=== PATIENT | female | born 1970 | race Caucasian/White ===

== ENCOUNTER → 2019-03-01 | Outpatient (CLI) | payer OTHER, SELFPAY ==
[2019-03-01 12:50] LABS: Erythrocyte Sedimentation Rate 2 mm/hr (0-20)
[2019-03-01 12:52] LABS: Absolute Lymphocyte Count 1.53 X10^3/ul (0.83-4.51); Absolute Neutrophil Count 4.1 X10^3/uL (2.0-7.7); Basophil# 0.03 X10^3/uL; Basophil% 0.5 % (0-1); Eosinophil# 0.07 X10^3/uL; Eosinophils% 1.1 % (0-5); Hematocrit 43.4 % (37-47); Hemoglobin 14.6 g/dl (12.0-15.0); Lymphocyte # 1.53 X10^3/ul (4.0); Lymphocyte % 24.7 % (19-41); Mean Corp Hgb Conc 33.6 g/gl (32-36); Mean Corpuscular Hgb 29.7 pg (27.0-32.0); Mean Corpuscular Volume 88.4 fL (81-99); Mean Platelet Vol. 11.7 fl (6.2-12.0); Monocyte# 0.48 X10^3/uL; Monocyte% 7.7 % (0-10); Neutrophil # 4.08 X10^3/uL (2.7-7.7); Neutrophil % 65.8 % (47-70); POSITIVE COUNT NO; POSITIVE DIFFERENTIAL NO; POSITIVE MORPHOLOGY NO; Platelet Count 255 K/mm3 (150-450); RBC Distribution Width CV 12.7 % (11.6-14.6); RBC Distribution Width SD 40.6 fl (35.1-43.9); Red Blood Count 4.91 M/mm3 (4.2-5.4); White Blood Count 6.2 K/mm3 (4.4-11.0)
[2019-03-01 13:13] LABS: AST(SGOT) 15 U/L (15-37); Alanine Aminotransfer ALT/SGPT 25 U/L (13-56); Alkaline Phosphatase 53 U/L (45-117); Anion Gap 6 (5-15); BUN 14 mg/dL (7-18); BUN/Creat Ratio 14.2 RATIO (10-20); Calcium,Total 8.9 mg/dL (8.5-10.1); Chloride 106 mmol/L (98-107); Creatinine, Serum 0.98 mg/dL (0.55-1.02); EST Glomerular Filtration Rate 65 mL/min (>60); Est Glom Filt Rate - Afr Amer 78 mL/min (>60); Ferritin 25 ng/mL (8-252); Globulin 3.9 g/dL (2.2-4.2); Glucose 79 mg/dL (74-106); Iron 75 ug/dL (50-170); Iron Binding Capacity,Total 302 ug/dL (250-450); PERCENT IRON SATURATION 24.8 % (15.0-55.0); Potassium 4.4 mmol/L (3.5-5.1); Protein, Total 7.9 g/dL (6.4-8.2); Sodium Level 140 mmol/L (136-145); Thyroid Stim Hormone (TSH) 2.21 uIU/mL (0.358-3.74)
== END | disposition home or self-care (01) ==
LOC: MFPLAB 10:24
PROVIDERS: Family Provider Family Medicine; PCP Family Medicine; Referring Provider Family Medicine; Visit Provider Family Medicine
DX: K92.1 Melena (principal); N92.0 Excessive and frequent menstruation with regular cycle; F42.9 Obsessive-compulsive disorder, unspecified
CPT/HCPCS: 36415; 80053; 82728; 83540; 83550; 84443; 85025; 85652

== ENCOUNTER 2019-04-02 06:29 | Day surgery (SDC) | payer OTHER, SELFPAY ==
[2019-03-13 08:59] VITALS: BMI 19.0
--- NOTE | 2019-03-13 11:28 | HP_ITS ---
Intake Vital Signs 03/13/19 Height 5 ft 8 in 03/13/19 Weight: 125 lb 03/13/19 Body Mass Index (BMI) 19.0 03/13/19 Blood Pressure 100/58 L 03/13/19 Blood Pressure Location Rt brachial 03/13/19 Blood Pressure Position Sitting 03/13/19 Respiratory Rate 14 03/13/19 Pulse Rate 54 L 03/13/19 Pulse Source Monitor 03/13/19 Temperature 97.9 F 03/13/19 Temperature Source Oral 03/13/19 Pulse Ox 100 03/13/19 Oxygen Delivery Method room air Intake Visit Reasons: [employer] Specialist Required: No Is patient in pain?: No (abdominal pain comes and goes) Allergies cyclobenzaprine [From Flexeril] Allergy (Unknown, Verified 03/13/19 08:39) Unknown pollen extracts Allergy (Unknown, Verified 03/13/19 08:39) Unknown Medications acetaminophen 325 mg tablet 650 mg PO Q6H PRN tab 03/13/19 [History Confirmed 03/13/19] cetirizine 10 mg tablet 10 mg PO DAILY 03/13/19 [History Confirmed 03/13/19] diphenhydramine 25 mg tablet 25 mg PO QHS PRN 03/13/19 [History Confirmed 03/13/19] famotidine 40 mg tablet 40 mg PO DAILY 03/13/19 [History Confirmed 03/13/19] paroxetine ER 37.5 mg tablet,extended release 24 hr 37.5 mg PO DAILY 03/13/19 [History Confirmed 03/13/19] PFSH Medical History Fatigue (Acute) Nausea (Acute) Abdominal pain (Acute) Asthma (Acute) Anxiety (Acute) Depression (Acute) Arthritis (Acute) Bloody stool (Acute) Migraine (Acute) Allergic rhinitis (Acute) IBS (irritable bowel syndrome) (Acute) Hematochezia (Acute) Dyspepsia (Acute) OCD (obsessive compulsive disorder) (Acute) Surgical History No significant past surgical history (Acute) Family History Father Arthritis Heart disease Brother Heart disease Social History Smoking Status: Never smoker second hand exposure: No alcohol intake: never substance use type: does not use caffeine: Yes frequency: does not exercise seatbelt use: always HPI HPI HPI: GILBERT LOWE, is a 48 F who presents to the office today for HPI HPI Surgical H&P: Yes HPI: GILBERT LOWE, is a 48 F who presents to the office today for clots per rectum, abdominal pain. Patient states about a month ago she had 3 days of blood clots and which were maroon per her rectum. Patient states she had finished her menses a day previous to the blood clots starting. Patient states prior to that she did have 4 to 5 days of constipation then had a large soft stool as well as quite a bit of gas next came the blood clots. Patient states that she also had an episode like this but shorter about 6 to 8 months ago she states she did have clots but only lasted about a half a day. Patient states she does eat a lot of fruits and vegetables drinks about 37 ounces of water daily states she normally does have bowel movements daily or every other day. Since the episode of the clots 1 month ago patient denies any blood in her stool since then. Patient does not believe she has any hemorrhoids. Patient denies any family history of colon cancer. Her paternal great-grandmother did have pancreatic cancer. Patient has never had an EGD or colonoscopy previously. Patient states she does have abdominal pain which comes and goes usually suprapubic or right lower quadrant per patient. She states her pains are usually a 2 out of 10. And she will get it with palpation without palpation she may not have any pain. ROS General General: Yes fatigue; no weight change Cardio Cardiovascular: No murmur, pacemaker, heart disease, atrial fibrillation, high blood pressure, heart attack, heart stent, palpitations, shortness of breat with exertion or chest pain Psych Psychiatric: Yes depression and anxiety Gastro Gastrointestinal: Yes abdominal pain, Yes nausea or vomiting, No diarrhea, No constipation, Yes blood in stool, No acid reflux, No hemorrhoids, No ulcers, No gallbladder problem, No black,tarry stools Exam Const General: cooperative, comfortable, no acute distress Resp Effort & Inspection: normal respiratory effort Cardio Rate: regular rate Heart Sounds: no murmurs GI Palpation: soft, no guarding, tender (Mainly in the right and left lower quadrants, periumbilical,) Other: Abdominal pain is rated 2/10 by patient with palpation, no peritoneal signs Assessment & Plan Problems 1. Blood per rectum K62.5 2. LLQ discomfort R10.32 3. RLQ discomfort R10.31 Plan I have discussed the above with the patient. I have offered the patient colonoscopy for evaluation. I have explained the risks/benefits of the procedure and described the procedure. I have discussed the risks with the patient, including but not limited to: infection, bleeding, perforation of the GI tract requiring emergency surgery, inability to complete the procedure, injury to any internal organs, complications of anesthesia, etc. - the patient understands and agrees to proceed. I have answered all the patient's questions to the patient's satisfaction and the patient has no further questions. The patient has been given instructions for the colon cleansing preparation. 1 day of clears, MiraLAX Dulcolax split prep Michelle Reveles M.D. Pager: [phone] [facility] [address] [place] [address], [facility], [address] [place] [address] Office: [phone] Orders Orders: Colonoscopy Today Medications New: paroxetine ER 37.5 mg PO DAILY Plan Detail Follow Up We will schedule colonoscopy Coding Level of Care Code Off vis,new,level 3 Diagnoses Blood per rectum K62.5 LLQ discomfort R10.32 RLQ discomfort R10.31 03/13/19 1128 <Electronically signed by Michelle Zapata am, MD> Date _ Michelle Reveles MD I have re-examined the patient. There are no clinical changes since date of exam.
[2019-04-02] VITALS (7 sets, daily range): BP systolic 92–105; BP diastolic 50–75; PULSE 61–72; RESP 14–16; TEMP 36.3–36.9; O2SAT 95–100; BMI 18.8
[2019-04-02 07:01] LABS: Internal QC Validated? YES +Cl - CLEAR BKGD; Pregnancy, Urine Negative Negative
--- NOTE | 2019-04-04 10:45 | OP.ENDO_ITS ---
04/04/2019 Khari Gallardo [address] [place] [address] Re : Colonoscopy procedure for Mary Frankel Dear Dr. Gallardo This procedure was performed on Tuesday, April 02, 2019. My impressions and recommendations are as follows: Impressions : - The entire examined colon is normal on direct and retroflexion views. - No specimens collected. Recommendations : - Discharge patient to home. - Resume previous diet. - Continue present medications. - Repeat colonoscopy in 10 years for screening purposes. My findings are described in the full procedure note, which is enclosed. If I can be of further assistance, please feel free to contact me at Doctor phone number(s): , Work: . Sincerely, MD Michelle Rashid MD 04/02/2019 8:32:02 AM This report has been signed electronically.
== END 2019-04-02 09:24 | disposition home or self-care (01) ==
LOC: EN 06:31 → AC 06:32
PROVIDERS: Anesthesiology; Family Provider Family Medicine; PCP Family Medicine; Referring Provider Family Medicine; Visit Provider Surgery
PROC: 0DJD8ZZ Inspection of Lower Intestinal Tract, Via Natural or Artificial Opening Endoscopic (ICD-10-PCS; CPT 45378; principal; 2019-04-02 07:55)
DX: K62.5 Hemorrhage of anus and rectum (principal); K21.9 Gastro-esophageal reflux disease without esophagitis; J45.909 Unspecified asthma, uncomplicated; F41.9 Anxiety disorder, unspecified; F32.9 Major depressive disorder, single episode, unspecified; F42.8 Other obsessive-compulsive disorder; M19.90 Unspecified osteoarthritis, unspecified site; Z80.0 Family history of malignant neoplasm of digestive organs; Z79.899 Other long term (current) drug therapy
CPT/HCPCS: 45378; 81025; J7120; J2405

== ENCOUNTER → 2023-02-07 | Outpatient (CLI) | payer SELFPAY ==
--- NOTE | 2023-02-07 09:35 | RAD_ITS ---
STUDY: X-RAY CHEST REASON FOR EXAM: Female, 52 years old. THORACIC BACK PAIN TECHNIQUE: PA and lateral views of the chest. COMPARISON: None. FINDINGS: Hyperinflation. The lungs are clear. There is no demonstrated pleural abnormality. Normal size heart. Normal mediastinum and emy. Normal visualized pulmonary arteries. Normal visualized aortic arch and descending thoracic aorta. Normal visualized thoracic spine. Normal visualized ribs, clavicles, and shoulders. There is no demonstrated abnormality of the visualized soft tissue structures of the upper abdomen. RAD/Chest PA and Lateral IMPRESSION: Hyperinflation. The lungs are clear. Electronically Signed: Gustavo Joshua MD at 15:35 EDT ,
[2023-02-07 12:06] LABS: Absolute Lymphocyte Count 1.88 X10^3/uL (0.83-4.51); Absolute Neutrophil Count 4.3 X10^3/uL (2.0-7.7); Basophil# 0.06 X10^3/uL; Basophil% 0.9 % (0-1); Eosinophils% 1.5 % (0-5); Hematocrit 43.8 % (37-47); Hemoglobin 14.7 g/dL (12.0-15.0); Lymphocyte # 1.88 X10^3/ul (0.83-4.51); Lymphocyte % 27.5 % (19-41); Mean Corp Hgb Conc 33.6 g/dL (32-36); Mean Corpuscular Hgb 30.4 pg (27.0-32.0); Mean Corpuscular Volume 90.7 fL (81-99); Monocyte% 7.3 % (0-10); NRBC Flagged by Analyzer 0 % (0-5); Neutrophil # 4.28 X10^3/uL (2.7-7.7); Neutrophil % 62.7 % (47-70); Platelet Count 353 K/mm3 (150-450); RBC Distribution Width CV 12.4 % (11.6-14.6); Red Blood Count 4.83 M/mm3 (4.2-5.4); White Blood Count 6.8 K/mm3 (4.4-11.0)
[2023-02-07 12:24] LABS: Progesterone Level 0.38 ng/mL (See Comment); Vitamin B12 318 pg/mL (211-911)
[2023-02-07 12:46] LABS: ALB/GLOB Ratio 0.9 RATIO (0.9-2.4); AST(SGOT) 16 U/L (15-37); Alanine Aminotransfer ALT/SGPT 27 U/L (13-56); Albumin, Serum 3.8 g/dL (3.2-5.0); Alkaline Phosphatase 76 U/L (45-117); Anion Gap 8 (5-15); BUN 16 mg/dL (7-18); BUN/Creat Ratio 14.8 RATIO (10-20); Calcium,Total 8.8 mg/dL (8.5-10.1); Chloride 107 mmol/L (98-107); Creatinine, Serum 1.08 mg/dL (0.55-1.02); EST Glomerular Filtration Rate 57 mL/min (>60); Est Glom Filt Rate - Afr Amer 69 mL/min (>60); Follicle Stimulating Hormone 10.1 mIU/mL; Globulin 4.2 g/dL (2.2-4.2); Glucose 84 mg/dL (74-106); Sodium Level 138 mmol/L (136-145); Thyroid Stim Hormone (TSH) 2.27 uIU/mL (0.358-3.74)
[2023-02-11 09:09] LABS: Estrogen, Total, Serum 232 pg/mL (.)
== END | disposition home or self-care (01) ==
PROVIDERS: PCP Family Medicine; Referring Provider Family Medicine; Visit Provider Family Medicine
DX: R20.2 Paresthesia of skin (principal); M54.9 Dorsalgia, unspecified; Z78.0 Asymptomatic menopausal state
CPT/HCPCS: 36415; 71046; 80053; 82607; 82672; 82746; 83001; 83002; 84144; 84443; 85025

== ENCOUNTER → 2025-03-25 | Outpatient (CLI) | payer SELFPAY ==
[2025-03-25 10:53] LABS: Absolute Lymphocyte Count 1.63 X10^3/uL (0.83-4.51); Absolute Neutrophil Count 4.4 X10^3/uL (2.0-7.7); Basophil# 0.04 X10^3/uL; Basophil% 0.6 % (0-1); Eosinophil# 0.09 X10^3/uL; Eosinophils% 1.4 % (0-5); Hematocrit 42.7 % (37-47); Hemoglobin 14.4 g/dL (12.0-15.0); Lymphocyte # 1.63 X10^3/ul (0.83-4.51); Lymphocyte % 24.7 % (19-41); Mean Corp Hgb Conc 33.7 g/dL (32-36); Mean Corpuscular Hgb 30.4 pg (27.0-32.0); Mean Corpuscular Volume 90.1 fL (81-99); Mean Platelet Vol. 10.9 fl (6.2-12.0); Monocyte# 0.45 X10^3/uL; Monocyte% 6.8 % (0-10); NRBC Flagged by Analyzer 0 % (0-5); Neutrophil # 4.38 X10^3/uL (2.7-7.7); Neutrophil % 66.3 % (47-70); PTHIN 48 pg/mL (11-61); Platelet Count 320 K/mm3 (150-450); RBC Distribution Width CV 12.5 % (11.6-14.6); Red Blood Count 4.74 M/mm3 (4.2-5.4); White Blood Count 6.6 K/mm3 (4.4-11.0)
[2025-03-25 11:00] LABS: Erythrocyte Sedimentation Rate 6 mm/hr (0-30)
[2025-03-25 11:16] LABS: ALB/GLOB Ratio 1.2 RATIO (0.9-2.4); AST(SGOT) 23 U/L (<=31); Alanine Aminotransfer ALT/SGPT 31 U/L (<=34); Albumin, Serum 4.3 g/dL (3.5-5.0); Alkaline Phosphatase 75 U/L (35-104); Anion Gap 10 (5-15); BUN 12 mg/dL (4-19); BUN/Creat Ratio 11.6 RATIO (10-20); Calcium,Total 9.4 mg/dL (7.6-11.0); Carbon Dioxide 25.6 mmol/L (21.0-32.0); Chloride 103 mmol/L (98-108); Creatinine, Serum 1.01 mg/dL (0.70-1.20); EST Glomerular Filtration Rate 67 (>60); Globulin 3.5 g/dL (2.2-4.2); Glucose 86 mg/dL (70-99); Potassium 4.1 mmol/L (3.3-5.1); Protein, Total 7.8 g/dL (5.9-8.4); Sodium Level 139 mmol/L (133-145); Total Bilirubin 0.58 mg/dL (0.00-1.30)
[2025-03-25 11:30] LABS: CRP < 3.00 mg/L (0.0-3.0); Rheumatoid Factor < 10.0 IU/mL (<15); Vitamin D,25 Hydroxy 18.7 ng/mL (30-100)
--- OUTSIDE RECORDS SUMMARY | 2025-03-25 19:31 | XMS RPT_ITS | CCD ---
Author Organization [facility] CliniSyga Care Team Providers Care House Servant Name Role Phone Khari Gallardo Referring Unavailable Khari Gallardo Attending Unavailable Khari Gallardo Primary Care Unavailable Allergies Allergy Classification Reported Allergen(s) Allergy Type Date of Onset Reaction(s) Facility (1 source) cyclobenzaprine Drug Allergy 9 [facility] Repository (1 source) Pollen Drug allergy (disorder) 9 [facility] Problems Problem Classification Problem Date Documented Da te Episodic/Chronic Other nervous system disorders (1 source) Paresthesia of skin; Translations: [Paresthesia of skin] Onset: 02-11-2023 Episodic Results Test Name Value Interpretation Reference Range Facil ity Estrogen, Total, Serumon ESTROGENS,TOTAL 232 pg/mL Normal . [facility] Comment on above: Order Comment: Order Date: 02/07/23 Order Info: 2254-1 - EST N Result Comment: Prep ubertal < 40 Female Cycle: 1-10 Days 16 - 328 11-20 Days 34 - 501 21-30 Days 48 - 350 Post-Menopausal 40 - 244 Performed at: [facility] [address] [id number] Private Wealth Advisor: Paulina Redding MD, Phone: [phone] Performed By: #### L 503.0105, L509.4001, L506.0250, L3100.5055, L100.0100, L3400.0200, L500.4050, L501.9520 #### [facility] [address] [place], [address] CBC W/Diff, Automatedon 05-0 Absolute Lymph 1.88 X10 3/uL Normal 0.83-4.51 [facility] Comment on above: Order Comment: Order Date: 02/07/23 Order Info: 0184- - CBCD Performed By: #### L 503.0105, L509.4001, L506.0250, L3100.5055, L100.0100, L3400.0200, L500.4050, L501.9520 #### [facility] [address] [place], [address] Absolute Neut 4.3 X10 3/uL Normal 2.0-7.7 [facility] Comment on above: Order Comment: Order Date: 02/07/23 Order Info: 01801-01 - CBCD Performed By: #### L 503.0105, L509.4001, L506.0250, L3100.5055, L100.0100, L3400.0200, L500.4050, L501.9520 #### [facility] [address] [place], [place], [phone] (539) Basophils/100 WBC (Bld) 0.9 % Normal 0-1 [facility] Comment on above: Order Comment: Order Date: 02/07/23 Order Info: 0184 - CBCD Performed By: #### L 503.0105, L509.4001, L506.0250, L3100.5055, L100.0100, L3400.0200, L500.4050, L501.9520 #### [facility] [address] [place], [address] Eosinophils/100 WBC (Bld) 1.5 % Normal 0-5 [facility] Comment on above: Order Comment: Order Date: 02/07/23 Order Info: 0184- - CBCD Performed By: #### L 503.0105, L509.4001, L506.0250, L3100.5055, L100.0100, L3400.0200, L500.4050, L501.9520 #### [facility] [address] [place], [address] Erythrocyte distribution width (RBC) [Ratio] 12.4 % Normal 11.6-14.6 [facility] Comment on above: Order Comment: Order Date: 02/07/23 Order Info: 0184-1 - CBCD Performed By: #### L 503.0105, L509.4001, L506.0250, L3100.5055, L100.0100, L3400.0200, L500.4050, L501.9520 #### [facility] [address] [place], [address] Hematocrit (Bld) [Volume fraction] 43.8 % Normal 37-47 [facility] Comment on above: Order Comment: Order Date: 02/07/23 Order Info: 0184-1 - CBCD Performed By: #### L 503.0105, L509.4001, L506.0250, L3100.5055, L100.0100, L3400.0200, L500.4050, L501.9520 #### [facility] [address] [place], [address] Hemoglobin (Bld) [Mass/Vol] 14.7 g/dL Normal 12.0-15.0 [facility] Comment on above: Order Comment: Order Date: 02/07/23 Order Info: 0184-1 - CBCD Performed By: #### L 503.0105, L509.4001, L506.0250, L3100.5055, L100.0100, L3400.0200, L500.4050, L501.9520 #### [facility] [address] [place], [address] IG% 0.100 Normal 0.0-0.9 [facility] Comment on above: Order Comment: Order Date: 02/07/23 Order Info: 0184-1 - CBCD Result Comment: IG% - Immature Granulocytes (promyelocytes, myelocytes and metamyelocytes) > 1% indicates that a LEFT SHIFT is Present. Performed By: #### L 503.0105, L509.4001, L506.0250, L3100.5055, L100.0100, L3400.0200, L500.4050, L501.9520 #### [facility] [address] [place], [address] Lymphocytes/100 WBC (Bld) 27.5 % Normal 19-41 [facility] Comment on above: Order Comment: Order Date: 02/07/23 Order Info: 0184-1 - CBCD Performed By: #### L 503.0105, L509.4001, L506.0250, L3100.5055, L100.0100, L3400.0200, L500.4050, L501.9520 #### [facility] [address] [place], [address] MCH (RBC) [Entitic mass] 30.4 pg Normal 27.0-32.0 [facility] Comment on above: Order Comment: Order Date: 02/07/23 Order Info: 0184-1 - CBCD Performed By: #### L 503.0105, L509.4001, L506.0250, L3100.5055, L100.0100, L3400.0200, L500.4050, L501.9520 #### [facility] [address] [place], [address] MCHC (RBC) [Mass/Vol] 33.6 g/dL Normal 32-36 [facility] Comment on above: Order Comment: Order Date: 02/07/23 Order Info: 0184-1 - CBCD Performed By: #### L 503.0105, L509.4001, L506.0250, L3100.5055, L100.0100, L3400.0200, L500.4050, L501.9520 #### [facility] [address] [place], [address] MCV (RBC) [Entitic vol] 90.7 fL Normal 81-99 [facility] Comment on above: Order Comment: Order Date: 02/07/23 Order Info: 0184-1 - CBCD Performed By: #### L 503.0105, L509.4001, L506.0250, L3100.5055, L100.0100, L3400.0200, L500.4050, L501.9520 #### [facility] [address] [place], [address] Monocytes/100 WBC (Bld) 7.3 % Normal 0-10 [facility] Comment on above: Order Comment: Order Date: 02/07/23 Order Info: 0184-1 - CBCD Performed By: #### L 503.0105, L509.4001, L506.0250, L3100.5055, L100.0100, L3400.0200, L500.4050, L501.9520 #### [facility] [address] [place], [address] Neutrophils/100 WBC (Bld) 62.7 % Normal 47-70 [facility] Comment on above: Order Comment: Order Date: 02/07/23 Order Info: 0184- - CBCD Performed By: #### L 503.0105, L509.4001, L506.0250, L3100.5055, L100.0100, L3400.0200, L500.4050, L501.9520 #### [facility] [address] [place], [address] Nucleated RBC (Bld) [#/Vol] 0 10*3/uL Normal 0-5 [facility] Comment on above: Order Comment: Order Date: 02/07/23 Order Info: 0184-1 - CBCD Performed By: #### L 503.0105, L509.4001, L506.0250, L3100.5055, L100.0100, L3400.0200, L500.4050, L501.9520 #### [facility] [address] [place], [address] Platelet mean volume (Bld) [Entitic vol] 11.0 fL Normal 6.2-12.0 [facility] Comment on above: Order Comment: Order Date: 02/07/23 Order Info: 0184-1 - CBCD Performed By: #### L 503.0105, L509.4001, L506.0250, L3100.5055, L100.0100, L3400.0200, L500.4050, L501.9520 #### [facility] [address] [place], [address] Platelets (Bld) [#/Vol] 353 10*3/uL Normal 150-450 [facility] Comment on above: Order Comment: Order Date: 02/07/23 Order Info: 0184- - CBCD Performed By: #### L 503.0105, L509.4001, L506.0250, L3100.5055, L100.0100, L3400.0200, L500.4050, L501.9520 #### [facility] [address] [place], [address] RBC (Bld) [#/Vol] 4.83 10*6/uL Normal 4.2-5.4 [facility] Comment on above: Order Comment: Order Date: 02/07/23 Order Info: 0184-1 - CBCD Performed By: #### L 503.0105, L509.4001, L506.0250, L3100.5055, L100.0100, L3400.0200, L500.4050, L501.9520 #### [facility] [address] [place], [address] RDW SD 41.0 fl Normal 35.1-43.9 [facility] Comment on above: Order Comment: Order Date: 02/07/23 Order Info: 0184-1 - CBCD Performed By: #### L 503.0105, L509.4001, L506.0250, L3100.5055, L100.0100, L3400.0200, L500.4050, L501.9520 #### [facility] [address] [place], [address] WBC (Bld) [#/Vol] 6.8 10*3/uL Normal 4.4-11.0 [facility] Comment on above: Order Comment: Order Date: 02/07/23 Order Info: 0184-1 - CBCD Performed By: #### L 503.0105, L509.4001, L506.0250, L3100.5055, L100.0100, L3400.0200, L500.4050, L501.9520 #### [facility] [address] [place] [place], [address] Chest PA and Lateralon 02-07 Chest PA and Lateral [facility] [address] [facility] [place] [address] Chest PA and Lateral MR#: [id number] Acct: [id number] Name: GILBERT LOWE Rep #: [id number] : 1970 F 52 From: Gustavo molina MD PCP: Dr. Khari Gallardo MD Status: REG CLI Study: Chest PA and Lateral Date of Exam: 02/07/23 Exam# [id number] Ordering Dr: Khari Gallardo MD STUDY: X-RAY CHEST REASON FOR EXAM: Female, 52 years old. THORACIC BACK PAIN TECHNIQUE: PA and lateral views of the chest. COMPARISON: None. FINDINGS: Hyperinflation. The lungs are clear. There is no demonstrated pleural abnormality. Normal size heart. Normal mediastinum and emy. Normal visualized pulmonary arteries. Normal visualized aortic arch and descending thoracic aorta. Normal visualized thoracic spine. Normal visualized ribs, clavicles, and shoulders. There is no demonstrated abnormality of the visualized soft tissue structures of the upper abdomen. RAD/Chest PA and Lateral IMPRESSION: Hyperinflation. The lungs are clear. Electronically Signed: Gustavo Joshua MD at 15:35 EDT , CC: Dr. Khari Gallardo MD Voltage Tester: Signed Normal [facility] Comprehensive Metabolic Prof ilon 02-07-2023 Albumin [Mass/Vol] 3.8 g/dL Normal 3.2-5.0 [facility] Comment on above: Order Comment: Order Date: 02/07/23 Order Info: 0786- - CMP Order Info: 3015-12 - TSH Order Info: 2284-05S Order Info: 0553- - FSHLH N Performed By: #### L 503.0105, L509.4001, L506.0250, L3100.5055, L100.0100, L3400.0200, L500.4050, L501.9520 #### [facility] [address] [place], [address] Albumin/Globulin [Mass ratio] 0.9 {ratio} Normal 0.9-2.4 [facility] Comment on above: Order Comment: Order Date: 02/07/23 Order Info: 0786- - CMP Order Info: 3015-12 - TSH Order Info: 2284-05S Order Info: 05- - FSHLH N Performed By: #### L 503.0105, L509.4001, L506.0250, L3100.5055, L100.0100, L3400.0200, L500.4050, L501.9520 #### [facility] [address] [place], [address] ALK P 76 U/L Normal 45-117 [facility] Comment on above: Order Comment: Order Date: 02/07/23 Order Info: 0786- - CMP Order Info: 3015-12 - TSH Order Info: 2284-05S Order Info: 05- - FSHLH N Performed By: #### L 503.0105, L509.4001, L506.0250, L3100.5055, L100.0100, L3400.0200, L500.4050, L501.9520 #### [facility] [address] [place], [address] ALT [Catalytic activity/Vol] 27 U/L Normal 13-56 [facility] Comment on above: Order Comment: Order Date: 02/07/23 Order Info: 0786- - CMP Order Info: 3 - TSH Order Info: 2284-05 FOLS Order Info: 552-10 - FSHLH N Performed By: #### L 503.0105, L509.4001, L506.0250, L3100.5055, L100.0100, L3400.0200, L500.4050, L501.9520 #### [facility] [address] [place], [address] AST [Catalytic activity/Vol] 16 U/L Normal 15-37 [facility] Comment on above: Order Comment: Order Date: 02/07/23 Order Info: 785-10 - CMP Order Info: 3015-12 - TSH Order Info: 2284-05S Order Info: 552-10 - FSHLH N Performed By: #### L 503.0105, L509.4001, L506.0250, L3100.5055, L100.0100, L3400.0200, L500.4050, L501.9520 #### [facility] [address] [place], [address] Bilirubin [Mass/Vol] 0.60 mg/dL Normal 0.20-1.00 [facility] Comment on above: Order Comment: Order Date: 02/07/23 Order Info: 0786- - CMP Order Info: 3 - TSH Order Info: 2284-05 FOLS Order Info: 0553-1 - FSHLH N Result Comment: For patients on eltrombopag therapy, use of Dimension Mcintosh TBIL is not recommended. Performed By: #### L 503.0105, L509.4001, L506.0250, L3100.5055, L100.0100, L3400.0200, L500.4050, L501.9520 #### [facility] [address] [place], [address] BUN/CRE 14.8 RATIO Normal 10-20 [facility] Comment on above: Order Comment: Order Date: 02/07/23 Order Info: 07- - CMP Order Info: 3 - TSH Order Info: 2284-05 FOLS Order Info: 552-10 - FSHLH N Performed By: #### L 503.0105, L509.4001, L506.0250, L3100.5055, L100.0100, L3400.0200, L500.4050, L501.9520 #### [facility] [address] [place], [address] CA,Total 8.8 mg/dL Normal 8.5-10.1 [facility] Comment on above: Order Comment: Order Date: 02/07/23 Order Info: 785-10 - CMP Order Info: 3015-12 - TSH Order Info: 2284-05S Order Info: 552-10 - FSHLH N Performed By: #### L 503.0105, L509.4001, L506.0250, L3100.5055, L100.0100, L3400.0200, L500.4050, L501.9520 #### [facility] [address] [place], [address] Chloride [Moles/Vol] 107 mmol/L Normal 98-107 [facility] Comment on above: Order Comment: Order Date: 02/07/23 Order Info: 0786- - CMP Order Info: 3 - TSH Order Info: 2284-05 FOLS Order Info: 051 - FSHLH N Performed By: #### L 503.0105, L509.4001, L506.0250, L3100.5055, L100.0100, L3400.0200, L500.4050, L501.9520 #### [facility] [address] [place], [address] CO2 [Moles/Vol] 23.0 mmol/L Normal 21.0-32.0 [facility] Comment on above: Order Comment: Order Date: 02/07/23 Order Info: 785- - CMP Order Info: 3015-12 - TSH Order Info: 2284-05 FOLS Order Info: 552-10 - FSHLH N Performed By: #### L 503.0105, L509.4001, L506.0250, L3100.5055, L100.0100, L3400.0200, L500.4050, L501.9520 #### [facility] [address] [place], [place], [phone] (211) Creatinine [Mass/Vol] 1.08 mg/dL High 0.55-1.02 [facility] Comment on above: Order Comment: Order Date: 02/07/23 Order Info: 785-10 - CMP Order Info: 3015-12 Order Info: 2284-05S Order Info: 552-10 - FSHLH N Result Comment: The validity of the calculated GFR GFRAA in patients over 70 years has not been determined. Clinical correlation is essential. Performed By: #### L 503.0105, L509.4001, L506.0250, L3100.5055, L100.0100, L3400.0200, L500.4050, L501.9520 #### [facility] [address] [place], [address] EST GFR - AA 69 mL/min Normal >60 [facility] Comment on above: Order Comment: Order Date: 02/07/23 Order Info: 07 - CMP Order Info: 3015-12 - TSH Order Info: 2284-05 FOLS Order Info: 552-10 - FSHLH N Result Comment: Afri can [place] GFR Calc Performed By: #### L 503.0105, L509.4001, L506.0250, L3100.5055, L100.0100, L3400.0200, L500.4050, L501.9520 #### [facility] [address] [place], [address] GAP 8 Normal 5-15 [facility] Comment on above: Order Comment: Order Date: 02/07/23 Order Info: 785-10 - CMP Order Info: 3015-12 - TSH Order Info: 2284-05 - FOLS Order Info: 552-10 - FSHLH N Performed By: #### L 503.0105, L509.4001, L506.0250, L3100.5055, L100.0100, L3400.0200, L500.4050, L501.9520 #### [facility] [address] [place], [address] GFR/1.73 sq M.predicted among non-blacks MDRD (S/P/Bld) [Vol rate/Area] 57 mL/min/{1.73_m2} Low >60 [facility] Comment on above: Order Comment: Order Date: 02/07/23 Order Info: 785-10 - CMP Order Info: 3015-12 - TSH Order Info: 2284-05S Order Info: 552-10 - FSHLH N Result Comment: Non- GFR Calc Performed By: #### L 503.0105, L509.4001, L506.0250, L3100.5055, L100.0100, L3400.0200, L500.4050, L501.9520 #### [facility] [address] [place], [address] Globulin (S) [Mass/Vol] 4.2 g/dL Normal 2.2-4.2 [facility] Comment on above: Order Comment: Order Date: 02/07/23 Order Info: 785-10 - CMP Order Info: 3015-12 - TSH Order Info: 2284-8 - FOLS Order Info: 552-10 - FSHLH N Performed By: #### L 503.0105, L509.4001, L506.0250, L3100.5055, L100.0100, L3400.0200, L500.4050, L501.9520 #### [facility] [address] [place], [address] Glucose [Mass/Vol] 84 mg/dL Normal 74-106 [facility] Comment on above: Order Comment: Order Date: 02/07/23 Order Info: 785-10 - CMP Order Info: 3015-12 - TSH Order Info: 2284-05 Order Info: 552-10 - FSHLH N Performed By: #### L 503.0105, L509.4001, L506.0250, L3100.5055, L100.0100, L3400.0200, L500.4050, L501.9520 #### [facility] [address] [place], [address] Potassium [Moles/Vol] 4.0 mmol/L Normal 3.5-5.1 [facility] Comment on above: Order Comment: Order Date: 02/07/23 Order Info: 785-10 - CMP Order Info: 3015-12 - TSH Order Info: 2284-05S Order Info: 552-10 - FSHLH N Performed By: #### L 503.0105, L509.4001, L506.0250, L3100.5055, L100.0100, L3400.0200, L500.4050, L501.9520 #### [facility] [address] [place], [address] Sodium [Moles/Vol] 138 mmol/L Normal 136-145 [facility] Comment on above: Order Comment: Order Date: 02/07/23 Order Info: 785- - CMP Order Info: 3015-12 - TSH Order Info: 2284-05S Order Info: 1 - FSHLH N Performed By: #### L 503.0105, L509.4001, L506.0250, L3100.5055, L100.0100, L3400.0200, L500.4050, L501.9520 #### [facility] [address] [place], [address] T PROT 8.0 g/dL Normal 6.4-8.2 [facility] Comment on above: Order Comment: Order Date: 02/07/23 Order Info: 785- - CMP Order Info: 3 - TSH Order Info: 2284-05 FOLS Order Info: 1 - FSHLH N Performed By: #### L 503.0105, L509.4001, L506.0250, L3100.5055, L100.0100, L3400.0200, L500.4050, L501.9520 #### [facility] [address] [place], [address] Urea nitrogen [Mass/Vol] 16 mg/dL Normal 7-18 [facility] Comment on above: Order Comment: Order Date: 02/07/23 Order Info: 785-10 - CMP Order Info: 3015-12 - TSH Order Info: 2284-05S Order Info: 552- - FSHLH N Performed By: #### L 503.0105, L509.4001, L506.0250, L3100.5055, L100.0100, L3400.0200, L500.4050, L501.9520 #### [facility] [address] [place], [address] FSH and LHon 02-07-2023 FSH 10.1 mIU/mL Normal [facility] Comment on above: Order Comment: Order Date: 02/07/23 Order Info: 785-10 - CMP Order Info: 3 - TSH Order Info: 2284-05 FOLS Order Info: 53-1 - FSHLH N Result Comment: NORMAL REFERENCE RANGES FEMALE FOLLICULAR 2.3 - 12.6 mIU/mL MID-CYCLE PEAK 5.2 - 17.5 mIU/mL LUTEAL 1.7 - 12.9 mIU/mL POST-MENOPAUSAL ON MHT 5.9 - 72.8 mIU/mL NOT ON MHT 12.7 - 132.2 mlU/mL MALE 0.7 - 10.8 mIU/mL Performed By: #### L 503.0105, L509.4001, L506.0250, L3100.5055, L100.0100, L3400.0200, L500.4050, L501.9520 #### [facility] [address] [place], [place], [id number] LH 6.0 mIU/mL Normal [facility] Comment on above: Order Comment: Order Date: 02/07/23 Order Info: 0786-1 - CMP Order Info: 30163 - TSH Order Info: 2284-05 - FOLS Order Info: 0553- - FSHLH N Result Comment: NORMAL REFERENCE RANGES FEMALE FOLLICULAR 1.9 - 26.2 mIU/mL MID-CYCLE PEAK 22.8 - 76.1 mIU/mL LUTEAL 0.6 - 16.6 mIU/mL POST-MENOPAUSAL ON MHT 1.1 - 52.4 mIU/mL NOT ON MHT 8.6 - 61.8 mIU/mL MALE 1.2 - 10.6 mIU/mL Performed By: #### L 503.0105, L509.4001, L506.0250, L3100.5055, L100.0100, L3400.0200, L500.4050, L501.9520 #### [facility] [address] [place], [address] Folates, (Folic Acid)on FOLATES 10.10 ng/mL Normal 3.1-55.4 [facility] Comment on above: Order Comment: Order Date: 02/07/23 Order Info: 0786-1 - CMP Order Info: 3016-3 - TSH Order Info: 22801-08 - FOLS Order Info: 0553-1 - FSHLH N Result Comment: Slig ht Hemolysis, Result may be falsely increased. Performed By: #### L 503.0105, L509.4001, L506.0250, L3100.5055, L100.0100, L3400.0200, L500.4050, L501.9520 #### [facility] [address] [place], [place], [id number] Progesterone Levelon 023 Progesterone 0.38 ng/mL Normal See Comment [facility] Comment on above: Order Comment: Order Date: 02/07/23 Order Info: 2132-9 - B12 Order Info: 2839-9 - PROG Result Comment: Prog esterone Reference Table: UNITS Female: Follicular 0.15 - 1.40 ng/mL Luteal 3.34 - 25.56 ng/mL Mid-luteal 4.44 - 28.03 ng/mL Postmenopausal 0.0 - 0.73 ng/mL : 1st Trimester 11.22 - 90.00 ng/mL 2nd Trimester 25.55 - 89.40 ng/mL 3rd Trimester 48.40 -422.50 ng/mL Performed By: #### L 503.0105, L509.4001, L506.0250, L3100.5055, L100.0100, L3400.0200, L500.4050, L501.9520 #### [facility] [address] [place], [address] Thyroid Stim Hormone (TSH)on 02-07-2023 TSH 2.27 uIU/mL Normal 0.358-3.74 [facility] Comment on above: Order Comment: Order Date: 02/07/23 Order Info: 0786-1 - CMP Order Info: 3016-3 - TSH Order Info: 2284-8 - FOLS Order Info: 0553-1 - FSHLH N Performed By: #### L 503.0105, L509.4001, L506.0250, L3100.5055, L100.0100, L3400.0200, L500.4050, L501.9520 #### [facility] [address] [place], [place], [id number] Vitamin B12on 02-07-2023 Cobalamin (Vitamin B12) [Mass/Vol] 318 pg/mL Normal 211-911 [facility] Comment on above: Order Comment: Order Date: 02/07/23 Order Info: 2132-9 - B12 Order Info: 2839-9 - PROG Performed By: #### L 503.0105, L509.4001, L506.0250, L3100.5055, L100.0100, L3400.0200, L500.4050, L501.9520 #### [facility] [address] [place], [address] Encounters Encounter Date Encounter Type Care Provider Facility Start: 02-07-2023 End: 02-07-2023 ambulatory Khari Gallardo Facility:[facility] Procedures Date Procedure Procedure Detail Performing Clinician Start: 10-24-2018 Follow-up visit Payers Date Payer Category Payer Self-pay 2023 Unknown [id number] Unknown [id number] Summary Purpose Family History No Family History Records FoundNo Family History Records Found Advance Directives No Advanced Directives Records FoundNo Advanced Directives Records Found Additional Source Comments INFORMATION SOURCE (unrecogn ized section and content) DATE CREATED AUTHOR 03/22/2019 [employer] DATE CREATED AUTHOR AUTHOR'S DARIO ATION 02/12/2023 [facility] FOR RECORDS PERTAINING TO PATIENTS WHO ARE OR HAVE BEEN ENROLLED IN A CHEMICAL DEPENDENCY/SUBSTANCEABUSE PROGRAM, SOME INFORMATION MAY BE OMITTED. This clinical summary was aggregated from multiple sources. Caution should be exercised in using it in the provision of clinical care. This summary normalizes information from multiple sources, and as a consequence, information in this document may materially change the coding, format and clinical context of patient data. In addition, data may be omitted in some cases. CLINICAL DECISIONS SHOULD BE BASED ON THE PRIMARY CLINICAL RECORDS. [employer] provides no warranty or guarantee of the accuracy or completeness of information in this document.
[2025-03-26 13:08] LABS: ANTINUCLEAR ANTIBODIES DIRECT Negative (Negative)
[2025-03-26 16:09] LABS: Lyme Scn Total Ab w/Rflx Negative (Negative); PROEL- A/G Ratio 1.1 (0.7-1.7); PROEL- Albumin 3.9 g/dL (2.9-4.4); PROEL- Alpha-1 Globulin 0.2 g/dL (0.0-0.4); PROEL- Alpha-2 Globulin 0.7 g/dL (0.4-1.0); PROEL- Beta Globulin 1.1 g/dL (0.7-1.3); PROEL- Gamma Globulin 1.5 g/dL (0.4-1.8); PROEL- Globulin, Total 3.5 g/dL (2.2-3.9); PROEL- TOTAL PROTEIN 7.4 g/dL (6.0-8.5); PROEL-M-Spike Not Observed g/dL (Not Observed)
== END | disposition home or self-care (01) ==
PROVIDERS: PCP Family Medicine; Referring Provider Family Medicine; Visit Provider Family Medicine
DX: M25.50 Pain in unspecified joint (principal); W57.XXXA Bitten or stung by nonvenomous insect and other nonvenomous arthropods, initial encounter
CPT/HCPCS: 36415; 80053; 82306; 83970; 84165; 84443; 85025; 85652; 86038; 86140; 86431; 86618